=== PATIENT | female | born 1970 | race Caucasian/White ===

== ENCOUNTER 2017-04-16 14:06 | Emergency (ER) | payer SELFPAY ==
[~2017-04-16] VITALS: Ht 157.5 cm; Wt 81.8 kg
[2017-04-16] MEDS ORDERED: METF500T4 PO (14:15)
[2017-04-16] MEDS ORDERED: ASPI81 PO (14:15)
[2017-04-16 14:27] LABS: GLUCOSE,POINT OF CARE 91 MG/DL (70-110)
[2017-04-16 14:28] VITALS: BP 130/79
[2017-04-16] MEDS ORDERED: METHOCARBAMOL 500 MG TABLET PO ONE (15:30)
[2017-04-16] MEDS ORDERED: KETOROLAC TROMETHAMINE 60 MG/2 ML VIAL IM ONE (15:30)
== END 2017-04-16 16:22 | disposition home or self-care (01) ==
LOC: EMS 14:12
DX: S29.012A Strain of muscle and tendon of back wall of thorax, initial encounter (principal); S39.012A Strain of muscle, fascia and tendon of lower back, initial encounter; E11.9 Type 2 diabetes mellitus without complications; V49.50XA Passenger injured in collision with unspecified motor vehicles in traffic accident, initial encounter; Y93.89 Activity, other specified; Y92.89 Other specified places as the place of occurrence of the external cause; Y99.8 Other external cause status
CPT/HCPCS: 82962; 96372; 99283; J1885